=== PATIENT | female | born 2000 | race Hispanic/Latino ===

== ENCOUNTER 2024-11-11 22:35 | Emergency (ER) | payer BC, MEDICAID ==
[~2024-11-11] VITALS: Ht 157.5 cm; Wt 102.1 kg
--- NOTE | 2024-11-11 22:37 | NUR ---
COVID, FLUU AND STREP SWABS COLLECTED AND SENT
--- NOTE | 2024-11-11 22:41 | NUR ---
PCP CHEN SNEED
--- NOTE | 2024-11-11 22:50 | NUR ---
PATIENT REPORTS FEVER COUGH SORE THROAT AND BODY ACHES ONSET LAST NIGHT
[2024-11-11] MEDS: LACTATED RINGERS 1000ML 1,000 ML IV ONE (22:58)
[2024-11-11] MEDS: acetaMINOPHEN 500 MG TABLET PO ONE (22:59)
[2024-11-11] MEDS: ketOROlac 15MG/ML VIAL (15MG/ML) IV ONE (22:59)
[2024-11-11 23:05] LABS: RAPID GROUP A STREP negative (NEGATIVE)
[2024-11-11 23:08] LABS: SARS-CoV-2, RNA, NAAT NEGATIVE SARS CoV-2 (NEGATIVE)
[2024-11-11 23:17] LABS: INFLUENZA TYPE B Negative For Type B (NEGATIVE)
[2024-11-11 23:19] LABS: INFLUENZA TYPE A Positive For Type A (NEGATIVE)
[2024-11-11 23:35] VITALS: TEMP 99.8
[2024-11-11 23:36] VITALS: BP 134/69; PULSE 108; RESP 19; TEMP 99.8; O2SAT 98
[2024-11-11 23:43] LABS: APPEARANCE,URINE CLOUDY (CLEAR); BILIRUBIN,URINE NEGATIVE (NEGATIVE); COLOR,URINE LIGHT-YELLOW (YELLOW); GLUCOSE, URINE (UA) NEGATIVE (NEGATIVE); KETONES,URINE NEGATIVE (NEGATIVE); LEUKOCYTE ESTERASE ,URINE NEGATIVE Leu/uL (NEGATIVE); NITRATE,URINE NEGATIVE (NEGATIVE); OCCULT BLOOD,URINE NEGATIVE (NEGATIVE); PH,URINE 7.5 (5.0-8.0); PROTEIN,URINE NEGATIVE (NEGATIVE); UROBILINOGEN,URINE 0.2 mg/dL (0.2-1.0)
[2024-11-11 23:44] LABS: ADD UA MICROSCOPIC YES
[2024-11-11 23:46] LABS: MUCUS,URINE RARE LPF (None Seen); RBC,URINE 0-1 /HPF (0-1); SQUAMOUS EPITHELIAL CELL,UR MANY /HPF (0-2); WBC,URINE 0-1 /HPF (0-1)
--- NOTE | 2024-11-11 23:49 | HMCIMG ---
CHEST 1VW HISTORY: Cough COMPARISON: None FINDINGS: A frontal projection of the chest was obtained. No acute pulmonary infiltrates is seen. The heart is normal in size. Prominent interstitial markings are seen. No evidence of aortic calcification is seen. IMPRESSION: 1. No acute pulmonary infiltrate is seen.
[2024-11-12] MEDS ORDERED: OSEL75 PO (00:08)
--- NOTE | 2024-11-12 00:09 | ERN ---
General Chief Complaint: Sepsis Stated Complaint: FEVER, COUGH Time Seen by MD: 22:41 History of Present Illness Initial Comments This healthy 24-year-old female who presents for sore throat body aches and fever and a cough. Allergies: Coded Allergies: No Known Allergies (Unverified Allergy, Unknown, 11/11/24) Past Medical History Past Medical History: No Pertinent History Past Surgical History: None ROS Dictation CONSTITUTIONAL: Fever body ache HEAD/FACE: No signs of trauma. EENT: Sore throat RESPIRATORY: Cough CARDIOVASCULAR: No chest pain, no edema, no palpitations, no syncope. GASTROINTESTINAL/ABDOMINAL: No abdominal pain, no constipation, no diarrhea, no nausea, no vomiting. GENITOURINARY: No abnormal discharge, no dysuria, no frequent urination, no hematuria. No complaints of pain in the genitals. MUSCULOSKELETAL: No back pain, no gout, no joint pain, no joint swelling, no muscle pain, no muscle stiffness, no neck pain. INTEGUMENTARY: No change in color, no change in hair/nails, no dryness, no lesion, no lumps, no rash. NEUROLOGICAL/PSYCH: No anxiety, not depressed, no emotional problem, no headache, no numbness, no pre-existing deficit, no history of seizures, no tremors, no weakness. HEMATOLOGIC/LYMPHATIC: Not anemic, no history of blood clots, no apparent bleeding, no bruising, glands not swollen. All Systems Negative, Except as Noted. Physical Exam Physical Exam Dictation VITAL SIGNS: Reviewed. GENERAL APPEARANCE: Alert, oriented x3, no acute distress, obese. HEAD AND FACE: Non-traumatic. EYES: PERRL, pink conjunctivas, eyelid no trauma, anterior chamber clear. EARS: Pinnas intact and no signs of trauma or erythema. Ear canals clear and no discharge. TMs no erythema. NOSE: No discharge, no bleeding. OROPHARYNX: Mouth normal, teeth no caries, tongue pink. Pharynx clear, no erythema. Tonsils no exudates, no abscesses noted. Mucous membrane moist. NECK: Supple, non-tender, no thyromegaly, no masses, no JVD, no bruits. BREAST: Deferred. CHEST: No tenderness, no crepitus, no paradoxical movement, no retractions. LUNGS: Clear, well-ventilated, symmetric, no rales, no wheezing, no rhonchi, no stridor, good breath sounds bilaterally. HEART: Regular rate, regular rhythm, no murmur, no gallops. VASCULAR: No peripheral edema. ABDOMEN: Soft, positive bowel sounds, nondistended, no guarding, nontender, no rebound, no masses no hepatomegaly, no splenomegaly, no Rick's sign, no hernias. RECTAL: Deferred. GENITAL: Deferred. NEUROLOGICAL: Normal speech, gross motor function intact, gross sensory function intact. MUSCULOSKELETAL: Neck nontender, full range of motion, back nontender, full range of motion. EXTREMITIES: Nontender, full range of motion. SKIN: Color pink, dry, no turgor, no rash, no lacerations, no abrasions, no c ontusions. LYMPHATICS: Deferred. Results Laboratory and Microbiology Lab and Micro Result Laboratory Tests Test 11/11/24 22:39 11/11/24 23:33 Influenza Type A Antigen Positive For Type A Influenza Type B Antigen Negative For Type B SARS-CoV-2, RNA, NAAT NEGATIVE SARS CoV-2 Group A Streptococcus Rapid negative (NEGATIVE) Urine Color LIGHT-YELLOW (YELLOW) Urine Appearance CLOUDY (CLEAR) H Urine pH 7.5 (5.0-8.0) Urine Specific Crosby 1.018 (1.001-1.031) Urine Protein NEGATIVE mg/dL (NEGATIVE) Urine Glucose (UA) NEGATIVE mg/dL (NEGATIVE) Urine Ketones NEGATIVE mg/dL (NEGATIVE) Urine Occult Blood NEGATIVE (NEGATIVE) Urine Nitrate NEGATIVE (NEGATIVE) Urine Bilirubin NEGATIVE mg/dL (NEGATIVE) Urine Urobilinogen 0.2 mg/dL (0.2-1.0) Urine Leukocyte Esterase NEGATIVE Miguel Angel/uL Urine RBC 0-1 /HPF (0-1) Urine WBC 0-1 /HPF (0-1) Urine Squamous Epithelial Cells MANY /HPF (0-2) Urine Bacteria None /HPF (None Seen) Urine HCG, Qualitative NEGATIVE (NEGATIVE) MDM CC: Flu-like symptoms Historian: Patient Comorbidities: Obesity Limitations by social determinants of health: None Differential diagnosis: Flu, pneumonia, other Initial vital signs: Febrile, tachycardic. Vital signs improved in the ER. Flu positive, consistent with symptoms Chest x-ray (independently interpreted): No focal infiltrates or acute abnormalities Treatment in ED: IV fluids IV Toradol, Tylenol Plan: We will DC with Tamiflu, symptomatic support Patient agrees ED Course Orders Procedure Category Date Status Time Covid Rna Naat LAB 11/11/24 Complete 22:37 Influenza Type A & B, LAB 11/11/24 Complete Rapid 22:37 Rapid (Group A Strep) LAB 11/11/24 Complete 22:37 Acetaminophen 500mg PHA 11/11/24 Complete Tab (Tylenol 500mg T 23:00 Ketorolac PHA 11/11/24 Complete Tromethamine 15mg/Ml 23:00 Lactated Ringers PHA 11/11/24 Complete 1000ml (Lactated 23:00 ,Urine Test LAB 11/11/24 Complete 22:43 Chest 1vw RAD 11/11/24 Resulted 22:43 Urinalysis Profile LAB 11/11/24 Complete 22:53 Current Medications Medications (Trade) Dose Ordered Sig/Lola Route PRN Reason Start Time Stop Time Status Last Admin Dose Admin Acetaminophen (TYLenol 500MG TAB) 1,000 mg ONCE ONCE PO 11/11/24 23:00 11/11/24 23:01 DC 11/11/24 22:59 Ketorolac Tromethamine (toRADol) 15 mg ONCE ONCE IV 11/11/24 23:00 11/11/24 23:01 DC 11/11/24 22:59 Lactated Ringer's 1,000 ml @ 0 mls/hr ONCE ONCE IV 11/11/24 23:00 11/11/24 23:01 DC 11/11/24 22:58 Vital Signs Date Time Temp Pulse Resp B/P (MAP) Pulse Ox O2 Delivery O2 Flow Rate FiO2 11/11/24 23:36 99.9 108 19 134/69 98 Room Air* 0 21 11/11/24 22:59 101.7 11/11/24 22:36 101.7 138 22 158/94 97 Room Air DX & DISP Disposition: Discharge Departure Impression: Primary Impression: Influenza A Condition: Stable Scripts Oseltamivir Phosphate (Tamiflu) 75 Mg Cap 1 CAP PO BID for 5 Days, #10 CAP 0 Refills Prov: MAYCO OROZCO DO 11/12/24 Additional Instructions: You have influenza B, or the flu. I have prescribed Tamiflu, which is an antiviral medication. Take as presc ribed. I recommend that you take [id number] cold and flu medicines. Tylenol based medicines or ibuprofen based medicines we will reduce your fever and help with body aches. Be sure to drink plenty of liquids. Please return to the emergency department if you have any concerns. MAYCO OROZCO DO November 12, 2024 00:09
== END 2024-11-12 00:21 | disposition home or self-care (01) ==
LOC: EDH 22:35
DX: J10.1 Influenza due to other identified influenza virus with other respiratory manifestations (principal); Z20.822 Contact with and (suspected) exposure to COVID-19
CPT/HCPCS: 99284; 96374; 71045; 87635; 87880; 87804 ×2; 81001; 81025; J1885; J7120